=== PATIENT | female | born 1985 | race Caucasian/White ===

== ENCOUNTER 2017-09-05 19:40 | Emergency (ER) | payer OTHER ==
[~2017-09-05 19:40] MED LIST: AMOXICILLIN 50500 M1 PO; AMOXICILLIN500 M1 PO; ANAPROX DS550 MG PO; CELEXA 20 MG TA20 M1; CELEXA 20 MG TA20 M1 PO; DESYREL50 MG PO; FLEXERIL PO; MEDROLDOSEPACK PO; NEOSPORIN ANT70.8 GM TP; NOHOMEMEDICATIONS; NORCO 5-325 TA1 EACH PO; PEPCID AC20 M1 PO; PREDNISONE 20 M20 M1 PO; TRAZODONE 150150 M1 PO; VICODIN 5-5001 EACH PO; [UNRECOGNIZED DRUG - OTHER]; [UNRECOGNIZED DRUG - OTHER]
== END 2017-09-05 22:04 | disposition home or self-care (01) ==
LOC: M.ERS 19:40
DX: Z53.21 Procedure and treatment not carried out due to patient leaving prior to being seen by health care provider (principal)